=== PATIENT | female | born 1980 | race Two or more races ===

== ENCOUNTER 2019-08-25 08:17 | Emergency (ER) | payer MEDICAID, OTHER ==
[~2019-08-25] VITALS: Ht 152.4 cm; Wt 70.3 kg
[2019-08-25 08:25] VITALS: BP 111/75
[2019-08-25] MEDS ORDERED: KETOROLAC TROMETH 60MG/2ML VIAL IM ONE (09:00)
== END 2019-08-25 09:18 | disposition home or self-care (01) ==
LOC: ER 08:17
DX: M54.42 Lumbago with sciatica, left side (principal); X50.1XXA Overexertion from prolonged static or awkward postures, initial encounter; Y93.01 Activity, walking, marching and hiking; Y92.89 Other specified places as the place of occurrence of the external cause; Y99.8 Other external cause status
CPT/HCPCS: 96372; 99283; J1885

== ENCOUNTER 2021-01-05 04:17 | Emergency (ER) | payer MEDICAID ==
[~2021-01-05] VITALS: Ht 152.4 cm; Wt 72.6 kg
[2021-01-05] MEDS ORDERED: KETOROLAC TROMETH 60MG/2ML VIAL IM ONE (05:30)
[2021-01-05 05:35] VITALS: BP 131/76
== END 2021-01-05 05:49 | disposition home or self-care (01) ==
LOC: ER 04:17
DX: H61.891 Other specified disorders of right external ear (principal)
CPT/HCPCS: 96372; 99283; J1885

== ENCOUNTER 2021-10-16 15:33 | Emergency (ER) | payer MEDICAID ==
[~2021-10-16] VITALS: Ht 152.4 cm; Wt 72.6 kg
[2021-10-16] MEDS ORDERED: SODIUM CHLORIDE 0.9% 1,000 ML IV ONE (17:30)
[2021-10-16] MEDS ORDERED: MORPHINE SULFATE 4 MG/ML SYR/VIAL IV ONE (17:30)
[2021-10-16] MEDS ORDERED: ONDANSETRON HCL 4 MG/2 ML VIAL IV ONE (17:30)
[2021-10-16 19:12] LABS: Basophils # (auto) 0.1 10 ^3/uL (0-0.2); Eosinophils # (auto) 0.1 10 ^3/uL (0-0.8); Eosinophils % (auto) 0.6 % (0.0-7.0); Hematocrit 42.7 % (36.0-46.0); Hemoglobin 14.5 g/dL (12.2-16.2); Lymphocytes # (auto) 2.6 10 ^3/uL (0.4-5.4); Lymphocytes % (auto) 23.9 % (10.0-50.0); Mean Corpuscular Hemoglobin 28.8 pg (28.0-32.0); Mean Corpuscular Volume 84.7 fL (80.0-100.0); Monocytes # (auto) 0.5 10 ^3/uL (0-1.3); Monocytes % (auto) 4.5 % (0.0-12.0); Neutrophils # (auto) 7.8 10 ^3/uL (1.6-8.6); Nucleated Red Blood Cells % 0.1 %; Red Blood Cells 5.04 10^6/uL (4.0-5.20); Red Cell Distribution Width 15.1 % (11.8-14.3); White Blood Cell 11.1 10^3/uL (4.4-10.8)
[2021-10-16 19:40] LABS: Albumin 3.9 g/dL (3.4-5.0); BUN/Creatinine Ratio 18.5; Calcium 8.9 mg/dL (8.5-10.1); Potassium 3.8 mmol/L (3.5-5.1)
[2021-10-16 19:43] LABS: Bilirubin, Total 0.6 mg/dL (0.2-1.0); Total Protein 7.7 g/dL (6.4-8.2)
[2021-10-16] MEDS ORDERED: TRAM-297 PO (20:48)
[2021-10-16] MEDS ORDERED: ONDA-144 PO (20:48)
[2021-10-16 20:58] VITALS: BP 136/75
== END 2021-10-16 21:15 | disposition home or self-care (01) ==
LOC: ER 15:33
DX: G44.209 Tension-type headache, unspecified, not intractable (principal); R11.2 Nausea with vomiting, unspecified; E03.9 Hypothyroidism, unspecified
CPT/HCPCS: 36415; 70450; 80053; 85025

== ENCOUNTER → 2021-10-16 15:55 | Emergency (ER) | payer MEDICAID ==
[~2021-10-16 15:55] MED LIST: ONDA-144 PO; TRAM-297 PO
== END | disposition left against medical advice (07) ==
LOC: ER 15:55
DX: R51.9 Headache, unspecified (principal); Z53.21 Procedure and treatment not carried out due to patient leaving prior to being seen by health care provider

== ENCOUNTER 2022-04-30 08:31 | Emergency (ER) | payer MEDICAID ==
[~2022-04-30] VITALS: Ht 162.6 cm; Wt 70.2 kg
[2022-04-30] MEDS ORDERED: SUMAtriptan SUCCINATE 6 MG/0.5 ML VL SC ONE (10:15)
[2022-04-30] MEDS ORDERED: ONDANSETRON ODT 4 MG TAB PO ONE (10:15)
[2022-04-30] MEDS ORDERED: METOCLOPRAMIDE HCL 10 MG TAB PO ONE (12:00)
[2022-04-30 12:40] VITALS: BP 117/64
[2022-04-30] MEDS ORDERED: SUMA50TA2 PO (12:43)
[2022-04-30] MEDS ORDERED: METO-281 PO (12:43)
== END 2022-04-30 13:01 | disposition home or self-care (01) ==
LOC: ER 08:31
DX: G43.909 Migraine, unspecified, not intractable, without status migrainosus (principal)
CPT/HCPCS: 70450; 96372; 99284; J3030; J8597; Q0162

== ENCOUNTER 2022-07-04 03:03 | Emergency (ER) | payer MEDICAID ==
[~2022-07-04] VITALS: Ht 157.5 cm; Wt 70.5 kg
[~2022-07-04 03:03] MED LIST changes: +METO-281 PO; +SUMA50TA2 PO
[2022-07-04] MEDS ORDERED: cefTRIAXone SOD 1,000 MG VL IM ONE (06:45)
[2022-07-04] MEDS ORDERED: IBUPROFEN 800 MG TAB PO ONE (06:45)
[2022-07-04] MEDS ORDERED: IBUP800T27 PO (07:14)
[2022-07-04] MEDS ORDERED: AMOX-277 PO (07:14)
[2022-07-04] MEDS ORDERED: ACE650RS PR (07:26)
[2022-07-04 07:32] VITALS: BP 152/78
== END 2022-07-04 07:42 | disposition home or self-care (01) ==
LOC: ER 03:03
DX: H66.92 Otitis media, unspecified, left ear (principal); Z79.1 Long term (current) use of non-steroidal anti-inflammatories (NSAID); Z79.2 Long term (current) use of antibiotics; Z79.899 Other long term (current) drug therapy
CPT/HCPCS: 96372; 99283; J0696

== ENCOUNTER 2022-11-28 13:40 | Emergency (ER) | payer MEDICAID ==
[~2022-11-28] VITALS: Ht 152.4 cm; Wt 71.0 kg
[~2022-11-28 13:40] MED LIST changes: +ACE650RS PR; +AMOX875T4 PO
[2022-11-28 14:18] VITALS: BP 102/60
[2022-11-28] MEDS ORDERED: ACET-1080 PO (15:08)
[2022-11-28] MEDS ORDERED: METH-1182 PO (15:08)
== END 2022-11-28 15:19 | disposition home or self-care (01) ==
LOC: ER 13:40
DX: S46.911A Strain of unspecified muscle, fascia and tendon at shoulder and upper arm level, right arm, initial encounter (principal); Z88.1 Allergy status to other antibiotic agents; Z88.6 Allergy status to analgesic agent; X58.XXXA Exposure to other specified factors, initial encounter; Y93.89 Activity, other specified; Y92.89 Other specified places as the place of occurrence of the external cause; Y99.8 Other external cause status
CPT/HCPCS: 93971